=== PATIENT | male | born 1955 | race Caucasian/White ===

== ENCOUNTER 2018-04-29 10:25 | Inpatient (IN) | payer OTHER ==
[~2018-04-29] VITALS: Ht 180.3 cm; Wt 66.2 kg
[2018-04-29] MEDS ORDERED: LABETALOL HCL 200 MG in DEXTROSE 5%-WATER 160 ML IV PRN (10:59)
[2018-04-29] MEDS ORDERED: NALOXONE HCL 1 MG/ML 2 ML SYG IVP ONE (11:00)
[2018-04-29 11:27] LABS: ANION GAP 9 mmol/L (8-16); CALCIUM, TOTAL 8.6 mg/dL (8.8-10.5); CARBON DIOXIDE 26 mmol/L (22-29); CHLORIDE 102 mmol/L (98-107); CREATININE 5.16 mg/dL (0.60-1.30); GLOMERULAR FILTR. RATE CALC 11 mL/min (>60); GLUCOSE,RANDOM 99 mg/dL (70-110); POTASSIUM 3.7 mmol/L (3.5-5.1); SODIUM SERUM 137 mmol/L (136-145); UREA NITROGEN, BLOOD 64 mg/dL (7-18)
[2018-04-29 11:30] LABS: BASOPHILS % (AUTO) 0.5 % (0.0-2.0); EOSINOPHILS % (AUTO) 5.2 % (1.0-6.0); HEMOGLOBIN 11.8 g/dL (13.5-17.5); LYMPHOCYTES # (AUTO) 1.4 K/uL (1.0-4.8); LYMPHOCYTES % (AUTO) 18.9 % (22.0-44.0); MEAN CORPUSCULAR HGB CONC 34.6 G/dL (31.0-37.0); MEAN CORPUSCULAR VOLUME 92 fL (80-100); MONOCYTES # (AUTO) 0.6 K/uL (0.1-1.0); NEUTROPHILS # (AUTO) 5.1 K/uL (1.8-7.7); NEUTROPHILS % (AUTO) 67.4 % (40.0-70.0); RED BLOOD CELL COUNT(AUTO) 3.68 MIL/uL (4.50-5.90); RED CELL DISTRIBUTION WIDTH 13.3 % (11.5-14.5)
[2018-04-29] MEDS ORDERED: LABETALOL HCL 5 MG/ML 20 ML VIAL IVP ONE (11:30)
[2018-04-29 11:34] LABS: ALANINE AMINOTRANSFERASE 33 U/L (12-78); ALBUMIN 3.2 g/dL (3.4-5.0); ALKALINE PHOSPHATASE 64 U/L (46-116); ASPARTATE AMINOTRANSFERASE 27 U/L (15-37); BILIRUBIN,TOTAL 0.5 mg/dL (0.1-1.0); TOTAL PROTEIN, SERUM 6.5 g/dL (6.4-8.2); TROPONIN I 0.03 ng/mL (0.00-0.05)
[2018-04-29 11:37] LABS: LACTIC ACID 0.8 mmol/L (0.4-2.0)
[2018-04-29 11:42] LABS: B-TYPE NATRIURETIC PEPTIDE 1870 pg/mL (0-100)
[2018-04-29 11:49] LABS: PLATELET COUNT (AUTO) 61 K/uL (150-450)
[2018-04-29 11:50] LABS: ACETAMINOPHEN < 2 mcg/mL (10-30); AMMONIA < 10 umol/L (11-32)
[2018-04-29 11:53] LABS: ABG A-A DIFF O2 30.4 mmHg (10-20.0); ABG BASE EXCESS -3.9 mmol/L (-2.0-3.0); ABG CARBOXYHEMOGLOBIN 1.8 % (0.0-1.5); ABG HCO3 21.3 mmol/L (22.0-26.0); ABG METHEMOGLOBIN 0.2 % (0.0-1.5); ABG OXYGEN CONTENT 14.1 mL/dL (15.0-23.0); ABG OXYGEN SATURATION 94.2 % (95.0-98.0); ABG OXYHEMOGLOBIN 92.3 % (94.0-100.0); ABG PCO2 42 mmHg (35-45); ABG TOTAL HEMOGLOBIN 10.8 G/dL (12.0-18.0); SOURCE, BLOOD GAS ARTERIAL; TEMPERATURE, FAHRENHEIT, BG 97.4 FAHREN (96.0-98.6)
[2018-04-29 11:54] LABS: SITE, BLOOD GAS LFT RADIAL
[2018-04-29 11:58] LABS: APPEARANCE,URINE CLOUDY (CLEAR); BILIRUBIN,URINE NEGATIVE (NEGATIVE); GLUCOSE, URINE (UA) NEGATIVE (NEGATIVE); KETONES,URINE NEGATIVE (NEGATIVE); LEUKOCYTE ESTERASE ,URINE NEGATIVE (NEGATIVE); NITRATE,URINE NEGATIVE (NEGATIVE); OCCULT BLOOD,URINE LARGE (NEGATIVE); PROTEIN,URINE SEE CONFIRM (NEGATIVE); UROBILINOGEN,URINE 0.2 mg/dL (<=1.0)
[2018-04-29 12:00] LABS: AMPHET/METH SCREEN,URINE POSITIVE (NEGATIVE); BARBITURATE SCREEN, URINE NEGATIVE (NEGATIVE); BENZODIAZEPINES SCREEN,URINE NEGATIVE (NEGATIVE); CANNABINOID SCREEN,URINE POSITIVE (NEGATIVE); COCAINE SCREEN,URINE NEGATIVE (NEGATIVE); METHADONE SCREEN, URINE NEGATIVE (NEGATIVE); OPIATE SCREEN,URINE NEGATIVE (NEGATIVE)
[2018-04-29 12:01] LABS: PHENCYCLIDINE SCREEN,URINE NEGATIVE (NEGATIVE)
[2018-04-29 12:09] LABS: SALICYLATE 6.7 mg/dL (2.8-20.0)
[2018-04-29 12:38] LABS: BACTERIA,URINE Moderate /HPF (None Seen); RBC,URINE 51-100 /HPF (0-2); RENAL EPITHELIAL CELLS,URINE Few /LPF (None Seen); SULFOSALICYLIC ACID,URINE 3+ (Negative); WBC,URINE 0-2 /HPF (0-5)
[2018-04-29 12:39] LABS: FINE GRANULAR CASTS,URINE 0-2 /LPF (None Seen); HYALINE CASTS, URINE 0-2 /LPF (None Seen)
[2018-04-29] MEDS ORDERED: HydrALAZINE HCL 20 MG/ML VIAL IVP ONE ×2 (13:00→19:15)
[2018-04-29] MEDS ORDERED: BISACODYL 10 MG RECTAL RECTAL SUPPOSITORY PR PRN (14:45)
[2018-04-29] MEDS ORDERED: LORazepam 2 MG/ML VIAL IVP ONE (15:15)
[2018-04-29 17:23] VITALS: BP 194/112
[2018-04-29] MEDS ORDERED: PNEUMOCOCCAL VACCINE POLYVALENT 0.5 ML VIAL [PPSV23] IM ONE (19:00)
[2018-04-29 19:28] VITALS: BP 181/139
[2018-04-30] VITALS (7 sets, daily range): BP systolic 143–200; BP diastolic 92–125
[2018-04-30] MEDS ORDERED: ONDANSETRON HCL 4 MG/2 ML VIAL IM PRN (05:15)
[2018-04-30] MEDS: HydrALAZINE HCL 20 MG/ML VIAL IVP PRN ×3 (05:26→15:56)
[2018-04-30] MEDS: ONDANSETRON HCL 4 MG/2 ML VIAL IVP PRN ×3 (05:27→22:12)
[2018-04-30 06:22] LABS: BASOPHILS % (AUTO) 0.5 % (0.0-2.0); EOSINOPHILS % (AUTO) 0.9 % (1.0-6.0); HEMATOCRIT 38.1 % (41-53); HEMOGLOBIN 13.1 g/dL (13.5-17.5); LYMPHOCYTES # (AUTO) 0.8 K/uL (1.0-4.8); LYMPHOCYTES % (AUTO) 9.2 % (22.0-44.0); MEAN CORPUSCULAR HEMOGLOBIN 32.3 pg (26.0-34.0); MEAN CORPUSCULAR HGB CONC 34.4 G/dL (31.0-37.0); MEAN CORPUSCULAR VOLUME 94 fL (80-100); MONOCYTES # (AUTO) 0.6 K/uL (0.1-1.0); MONOCYTES % (AUTO) 6.3 % (2.0-9.0); NEUTROPHILS # (AUTO) 7.3 K/uL (1.8-7.7); NEUTROPHILS % (AUTO) 83.1 % (40.0-70.0); PLATELET COUNT (AUTO) 80 K/uL (150-450); RED BLOOD CELL COUNT(AUTO) 4.06 MIL/uL (4.50-5.90); RED CELL DISTRIBUTION WIDTH 13.5 % (11.5-14.5)
[2018-04-30 06:47] LABS: ALBUMIN 3.4 g/dL (3.4-5.0); BILIRUBIN,TOTAL 0.7 mg/dL (0.1-1.0); CALCIUM, TOTAL 8.9 mg/dL (8.8-10.5); CREATININE 3.84 mg/dL (0.60-1.30); MAGNESIUM 1.9 mg/dL (1.80-2.40); PHOSPHORUS 4.1 mg/dL (2.5-4.9); POTASSIUM 3.6 mmol/L (3.5-5.1)
[2018-04-30 06:50] LABS: % IRON SATURATION 22.8 % (30-44)
[2018-04-30] MEDS ORDERED: LORazepam 2 MG/ML VIAL IVP ONE ×2 (08:15→09:30)
[2018-04-30] MEDS ORDERED: LORazepam 2 MG/ML VIAL IVP PRN (08:45)
[2018-04-30] MEDS: ASPIRIN 81 MG CHEWABLE TABLET PO SCH (09:00)
[2018-04-30] MEDS: AmLODIPine BESYLATE 10 MG TABLET PO SCH (09:00)
[2018-04-30] MEDS: ATORVASTATIN CALCIUM 20 MG TABLET PO SCH (09:00)
[2018-04-30] MEDS ORDERED: HALOPERIDOL LACTATE 5 MG/ML VIAL IM PRN (10:30)
[2018-04-30] MEDS: DEXTROSE 5%-WATER 1,000 ML IV SCH (17:06)
[2018-04-30] MEDS: LORazepam 2 MG/ML VIAL IVP PRN ×2 (17:16→22:07)
[2018-05-01] VITALS (9 sets, daily range): BP systolic 162–199; BP diastolic 94–131
[2018-05-01] MEDS: ONDANSETRON HCL 4 MG/2 ML VIAL IVP PRN ×2 (02:37→22:58)
[2018-05-01] MEDS: LORazepam 2 MG/ML VIAL IVP PRN (04:11)
[2018-05-01] MEDS: HydrALAZINE HCL 20 MG/ML VIAL IVP PRN ×3 (05:36→22:09)
[2018-05-01 06:21] LABS: BASOPHILS % (AUTO) 0.5 % (0.0-2.0); EOSINOPHILS % (AUTO) 1.5 % (1.0-6.0); HEMATOCRIT 36.4 % (41-53); HEMOGLOBIN 12.5 g/dL (13.5-17.5); LYMPHOCYTES # (AUTO) 1.2 K/uL (1.0-4.8); LYMPHOCYTES % (AUTO) 13.3 % (22.0-44.0); MEAN CORPUSCULAR HEMOGLOBIN 32.1 pg (26.0-34.0); MEAN CORPUSCULAR HGB CONC 34.3 G/dL (31.0-37.0); MEAN CORPUSCULAR VOLUME 94 fL (80-100); MONOCYTES # (AUTO) 0.8 K/uL (0.1-1.0); MONOCYTES % (AUTO) 8.9 % (2.0-9.0); NEUTROPHILS # (AUTO) 6.8 K/uL (1.8-7.7); NEUTROPHILS % (AUTO) 75.8 % (40.0-70.0); PLATELET COUNT (AUTO) 100 K/uL (150-450); RED BLOOD CELL COUNT(AUTO) 3.89 MIL/uL (4.50-5.90); RED CELL DISTRIBUTION WIDTH 13.5 % (11.5-14.5)
[2018-05-01 06:40] LABS: CALCIUM, TOTAL 8.9 mg/dL (8.8-10.5); CREATININE 3.41 mg/dL (0.60-1.30); PHOSPHORUS 3.7 mg/dL (2.5-4.9); POTASSIUM 3.5 mmol/L (3.5-5.1)
[2018-05-01 07:29] LABS: GLUCOMETER DEV NAME(LOC) 5S 2R; GLUCOSE,POINT OF CARE 107 MG/DL (70-110)
[2018-05-01] MEDS: ASPIRIN 81 MG CHEWABLE TABLET PO SCH (09:00)
[2018-05-01] MEDS: ATORVASTATIN CALCIUM 20 MG TABLET PO SCH (09:00)
[2018-05-01] MEDS: AmLODIPine BESYLATE 10 MG TABLET PO SCH (09:00)
[2018-05-01] MEDS: CloNIDine 0.1 MG/24 HOUR PATCH TD SCH (09:21)
[2018-05-01] MEDS ORDERED: HEPARIN SODIUM,PORCINE 1,000 UNITS/ML VIAL IVP ONE ×2 (12:45→16:54)
[2018-05-01] MEDS ORDERED: 0.9% SODIUM CHLORIDE 5 ML NEB SOLUTION NEB ONE (17:59)
[2018-05-01] MEDS: ALBUTEROL SULFATE 2.5 MG/0.5 ML NEB SOLUTION NEB PRN (18:03)
[2018-05-01] MEDS: DEXTROSE 5%-WATER 1,000 ML IV SCH (18:13)
[2018-05-01] MEDS: CloNIDine HCL 0.1 MG TABLET PO PRN (20:36)
[2018-05-02] VITALS (8 sets, daily range): BP systolic 148–206; BP diastolic 90–119
[2018-05-02] MEDS ORDERED: CloNIDine HCL 0.1 MG TABLET PO ONE (00:30)
[2018-05-02] MEDS ORDERED: AmLODIPine BESYLATE 10 MG TABLET PO ONE (00:30)
[2018-05-02] MEDS: ACETAMINOPHEN 325 MG TABLET PO PRN ×3 (00:57→18:29)
[2018-05-02] MEDS: ONDANSETRON HCL 4 MG/2 ML VIAL IVP PRN (04:25)
[2018-05-02] MEDS: LORazepam 2 MG/ML VIAL IVP PRN (04:25)
[2018-05-02] MEDS: HydrALAZINE HCL 20 MG/ML VIAL IVP PRN (04:26)
[2018-05-02 06:33] LABS: EOSINOPHILS % (AUTO) 3.4 % (1.0-6.0); HEMATOCRIT 34.4 % (41-53); HEMOGLOBIN 12.1 g/dL (13.5-17.5); LYMPHOCYTES # (AUTO) 1.4 K/uL (1.0-4.8); LYMPHOCYTES % (AUTO) 15.9 % (22.0-44.0); MEAN CORPUSCULAR HEMOGLOBIN 32.4 pg (26.0-34.0); MEAN CORPUSCULAR VOLUME 93 fL (80-100); MONOCYTES # (AUTO) 0.6 K/uL (0.1-1.0); MONOCYTES % (AUTO) 7.3 % (2.0-9.0); NEUTROPHILS # (AUTO) 6.2 K/uL (1.8-7.7); NEUTROPHILS % (AUTO) 70.4 % (40.0-70.0); PLATELET COUNT (AUTO) 119 K/uL (150-450); RED BLOOD CELL COUNT(AUTO) 3.72 MIL/uL (4.50-5.90); RED CELL DISTRIBUTION WIDTH 13.5 % (11.5-14.5)
[2018-05-02 06:59] LABS: CALCIUM, TOTAL 8.8 mg/dL (8.8-10.5); CREATININE 4.58 mg/dL (0.60-1.30); MAGNESIUM 1.9 mg/dL (1.80-2.40); PHOSPHORUS 3.5 mg/dL (2.5-4.9); POTASSIUM 3.6 mmol/L (3.5-5.1)
[2018-05-02] MEDS: ATORVASTATIN CALCIUM 20 MG TABLET PO SCH (08:13)
[2018-05-02] MEDS: ASPIRIN 81 MG CHEWABLE TABLET PO SCH (08:13)
[2018-05-02] MEDS: AmLODIPine BESYLATE 10 MG TABLET PO SCH (08:13)
[2018-05-02] MEDS: HydrALAZINE HCL 25 MG TABLET PO SCH ×2 (10:36→20:02)
[2018-05-02] MEDS ORDERED: SODIUM CHLORIDE 0.9% 2,000 ML IV ONE (16:08)
[2018-05-02] MEDS: DEXTROSE 5%-WATER 1,000 ML IV SCH (17:41)
[2018-05-02] MEDS ORDERED: HEPARIN SODIUM,PORCINE 1,000 UNITS/ML VIAL IVP ONE (22:19)
[2018-05-03 00:11] VITALS: BP 148/104
[2018-05-03] MEDS: ACETAMINOPHEN 325 MG TABLET PO PRN ×3 (00:23→23:25)
[2018-05-03] MEDS: CloNIDine HCL 0.1 MG TABLET PO PRN (00:24)
[2018-05-03 04:01] VITALS: BP 152/104
[2018-05-03 08:04] VITALS: BP 150/97
[2018-05-03] MEDS: ASPIRIN 81 MG CHEWABLE TABLET PO SCH (08:21)
[2018-05-03] MEDS: AmLODIPine BESYLATE 10 MG TABLET PO SCH (08:21)
[2018-05-03] MEDS: ATORVASTATIN CALCIUM 20 MG TABLET PO SCH (08:21)
[2018-05-03] MEDS: HydrALAZINE HCL 25 MG TABLET PO SCH ×3 (08:21→20:14)
[2018-05-03 11:43] VITALS: BP 155/92
[2018-05-03 16:21] VITALS: BP 131/91
[2018-05-03 20:24] VITALS: BP 146/97
[2018-05-04 00:19] VITALS: BP 147/113
[2018-05-04] MEDS: LORazepam 2 MG/ML VIAL IVP PRN (01:28)
[2018-05-04] MEDS: CloNIDine HCL 0.1 MG TABLET PO PRN (02:17)
[2018-05-04] MEDS: ASPIRIN 81 MG CHEWABLE TABLET PO SCH (04:38)
[2018-05-04] MEDS ORDERED: IBUPROFEN 200 MG TABLET PO PRN (08:45)
[2018-05-04] MEDS: HydrALAZINE HCL 50 MG TABLET PO SCH ×3 (09:22→21:10)
[2018-05-04] MEDS: OMEPRAZOLE 20 MG CAPSULE PO SCH (09:23)
[2018-05-04] MEDS: AmLODIPine BESYLATE 10 MG TABLET PO SCH (09:23)
[2018-05-04] MEDS: ATORVASTATIN CALCIUM 20 MG TABLET PO SCH (09:23)
[2018-05-04] MEDS: HYDROCODONE/ACETAMINOPHEN 5-325 MG TABLET PO PRN ×3 (09:23→21:11)
[2018-05-04] MEDS ORDERED: ASPIRIN 81 MG CHEWABLE TABLET PO ONE (09:30)
[2018-05-04] MEDS: LABETALOL HCL 100 MG TABLET PO SCH ×2 (10:27→21:10)
[2018-05-04 12:00] VITALS: BP 142/98
[2018-05-04 16:43] VITALS: BP 126/89
[2018-05-04 19:23] VITALS: BP 143/84
[2018-05-05] VITALS (7 sets, daily range): BP systolic 128–152; BP diastolic 81–100
[2018-05-05] MEDS ORDERED: FOLI-74 PO (02:43)
[2018-05-05] MEDS ORDERED: CIME200T10 PO (02:43)
[2018-05-05] MEDS ORDERED: BUME2TAB18 PO (02:43)
[2018-05-05] MEDS ORDERED: BECL10.62 IH (02:43)
[2018-05-05] MEDS ORDERED: CARV25 PO (02:43)
[2018-05-05] MEDS ORDERED: ATOR20TA86 PO (02:43)
[2018-05-05] MEDS ORDERED: CLON-570 PO (02:43)
[2018-05-05] MEDS: HYDROCODONE/ACETAMINOPHEN 5-325 MG TABLET PO PRN (03:12)
[2018-05-05] MEDS: ATORVASTATIN CALCIUM 20 MG TABLET PO SCH (08:10)
[2018-05-05] MEDS: ASPIRIN 81 MG CHEWABLE TABLET PO SCH (08:10)
[2018-05-05] MEDS: ACETAMINOPHEN 325 MG TABLET PO PRN ×2 (08:10→15:16)
[2018-05-05] MEDS: OMEPRAZOLE 20 MG CAPSULE PO SCH (09:00)
[2018-05-05] MEDS: LABETALOL HCL 100 MG TABLET PO SCH ×2 (09:00→19:57)
[2018-05-05] MEDS: HydrALAZINE HCL 50 MG TABLET PO SCH ×3 (09:00→19:57)
[2018-05-05] MEDS: AmLODIPine BESYLATE 10 MG TABLET PO SCH (09:00)
[2018-05-06 04:44] VITALS: BP 193/110
[2018-05-06] MEDS: HydrALAZINE HCL 20 MG/ML VIAL IVP PRN (04:47)
[2018-05-06 07:11] VITALS: BP 153/98
[2018-05-06] MEDS: ATORVASTATIN CALCIUM 20 MG TABLET PO SCH (07:52)
[2018-05-06] MEDS: ASPIRIN 81 MG CHEWABLE TABLET PO SCH (07:52)
[2018-05-06] MEDS: ACETAMINOPHEN 325 MG TABLET PO PRN ×3 (07:52→20:49)
[2018-05-06] MEDS ORDERED: 0.9% SODIUM CHLORIDE 5 ML NEB SOLUTION NEB ONE (08:00)
[2018-05-06] MEDS: ALBUTEROL SULFATE 2.5 MG/0.5 ML NEB SOLUTION NEB PRN (08:18)
[2018-05-06] MEDS: VITAMIN B COMP/VIT C/FOLIC ACID CAPSULE PO SCH (09:00)
[2018-05-06] MEDS: AmLODIPine BESYLATE 10 MG TABLET PO SCH (09:00)
[2018-05-06] MEDS: OMEPRAZOLE 20 MG CAPSULE PO SCH (09:00)
[2018-05-06] MEDS: LABETALOL HCL 100 MG TABLET PO SCH ×2 (09:00→20:46)
[2018-05-06] MEDS: HydrALAZINE HCL 50 MG TABLET PO SCH ×3 (09:00→20:46)
[2018-05-06 10:58] VITALS: BP 148/82
[2018-05-06] MEDS ORDERED: SODIUM CHLORIDE 0.9% 2,000 ML IV ONE (13:19)
[2018-05-06] MEDS ORDERED: MANNITOL 25%-12.5 GM/50 ML VIAL IVP PRN (13:45)
[2018-05-06] MEDS ORDERED: HEPARIN SODIUM,PORCINE 1,000 UNITS/ML VIAL IVP ONE ×3 (13:45→16:38)
[2018-05-06 16:01] VITALS: BP 133/89
[2018-05-06 20:32] VITALS: BP 173/101
[2018-05-06] MEDS: CloNIDine HCL 0.1 MG TABLET PO PRN (20:48)
[2018-05-06 23:26] VITALS: BP 128/74
[2018-05-07 05:38] VITALS: BP 139/81
[2018-05-07 07:15] VITALS: BP 155/92
[2018-05-07] MEDS: ACETAMINOPHEN 325 MG TABLET PO PRN ×2 (07:30→17:46)
[2018-05-07] MEDS: ALBUTEROL SULFATE 2.5 MG/0.5 ML NEB SOLUTION NEB PRN (08:16)
[2018-05-07] MEDS: OMEPRAZOLE 20 MG CAPSULE PO SCH (09:00)
[2018-05-07] MEDS: AmLODIPine BESYLATE 10 MG TABLET PO SCH (09:35)
[2018-05-07] MEDS: LABETALOL HCL 200 MG TABLET PO SCH ×2 (09:35→20:18)
[2018-05-07] MEDS: ATORVASTATIN CALCIUM 20 MG TABLET PO SCH (09:35)
[2018-05-07] MEDS: ASPIRIN 81 MG CHEWABLE TABLET PO SCH (09:36)
[2018-05-07] MEDS: HydrALAZINE HCL 50 MG TABLET PO SCH ×3 (09:37→20:16)
[2018-05-07] MEDS: VITAMIN B COMP/VIT C/FOLIC ACID CAPSULE PO SCH (09:37)
[2018-05-07 11:09] VITALS: BP 123/77
[2018-05-07 15:18] VITALS: BP 122/80
[2018-05-07 20:03] VITALS: BP 136/92
[2018-05-07 23:47] VITALS: BP 127/59
[2018-05-08 04:00] VITALS: BP 135/91
[2018-05-08] MEDS: ACETAMINOPHEN 325 MG TABLET PO PRN ×3 (04:39→16:18)
[2018-05-08 07:35] VITALS: BP 161/112
[2018-05-08] MEDS: VITAMIN B COMP/VIT C/FOLIC ACID CAPSULE PO SCH (11:49)
[2018-05-08] MEDS: ASPIRIN 81 MG CHEWABLE TABLET PO SCH (11:50)
[2018-05-08] MEDS: AmLODIPine BESYLATE 10 MG TABLET PO SCH (11:50)
[2018-05-08] MEDS: ATORVASTATIN CALCIUM 20 MG TABLET PO SCH (11:50)
[2018-05-08] MEDS: HydrALAZINE HCL 50 MG TABLET PO SCH ×3 (11:50→23:31)
[2018-05-08] MEDS: LABETALOL HCL 200 MG TABLET PO SCH ×2 (11:51→23:31)
[2018-05-08] MEDS: OMEPRAZOLE 20 MG CAPSULE PO SCH (11:51)
[2018-05-08 12:00] VITALS: BP 144/93
[2018-05-08] MEDS: CloNIDine 0.1 MG/24 HOUR PATCH TD SCH (12:06)
[2018-05-08] MEDS ORDERED: HEPARIN SODIUM,PORCINE 1,000 UNITS/ML VIAL IVP ONE (15:14)
[2018-05-08 16:23] VITALS: BP 120/77
[2018-05-08 19:24] VITALS: BP 109/70
[2018-05-08 23:29] VITALS: BP 147/94
[2018-05-09 04:35] VITALS: BP 127/81
[2018-05-09 07:58] VITALS: BP 144/90
[2018-05-09] MEDS: HydrALAZINE HCL 50 MG TABLET PO SCH (08:37)
[2018-05-09] MEDS: VITAMIN B COMP/VIT C/FOLIC ACID CAPSULE PO SCH (08:37)
[2018-05-09] MEDS: AmLODIPine BESYLATE 10 MG TABLET PO SCH (08:37)
[2018-05-09] MEDS: LABETALOL HCL 200 MG TABLET PO SCH (08:37)
[2018-05-09] MEDS: ATORVASTATIN CALCIUM 20 MG TABLET PO SCH (08:37)
[2018-05-09] MEDS: ASPIRIN 81 MG CHEWABLE TABLET PO SCH (08:37)
[2018-05-09] MEDS: OMEPRAZOLE 20 MG CAPSULE PO SCH ×2 (08:37→09:00)
[2018-05-09 12:08] VITALS: BP 130/85
[2018-05-09] MEDS ORDERED: ASPI81TA87 PO (14:49)
[2018-05-09] MEDS ORDERED: AMLO-512 PO (14:50)
[2018-05-09] MEDS ORDERED: CLON-570 TD (14:52)
[2018-05-09] MEDS ORDERED: HYDR-2924 PO (14:52)
[2018-05-09] MEDS ORDERED: FOLI1CAP2 PO (14:53)
[2018-05-09] MEDS ORDERED: LABE200T6 PO (14:53)
[2018-05-09 15:35] VITALS: BP 136/66
== END 2018-05-09 15:15 | disposition home or self-care (01) | DRG 199 ==
LOC: EMS 10:27 → 5S 16:15 → 4E 05-06 18:55 → 6N 05-09 14:06
PROVIDERS: ADMIT Internal Medicine; ATTEND Internal Medicine
PROC: 3E02340 Introduction of Influenza Vaccine into Muscle, Percutaneous Approach (ICD-10-PCS; principal; 2018-04-29)
PROC: 5A1D70Z Performance of Urinary Filtration, Intermittent, Less than 6 Hours Per Day (ICD-10-PCS; 2018-04-29)
PROC: 5A1D70Z Performance of Urinary Filtration, Intermittent, Less than 6 Hours Per Day (ICD-10-PCS; 2018-04-30)
PROC: 5A1D70Z Performance of Urinary Filtration, Intermittent, Less than 6 Hours Per Day (ICD-10-PCS; 2018-05-02)
PROC: 5A1D70Z Performance of Urinary Filtration, Intermittent, Less than 6 Hours Per Day (ICD-10-PCS; 2018-05-05)
PROC: 5A1D70Z Performance of Urinary Filtration, Intermittent, Less than 6 Hours Per Day (ICD-10-PCS; 2018-05-06)
PROC: 5A1D70Z Performance of Urinary Filtration, Intermittent, Less than 6 Hours Per Day (ICD-10-PCS; 2018-05-08)
DX: I16.0 Hypertensive urgency (principal); E43 Unspecified severe protein-calorie malnutrition; G92 Toxic encephalopathy; N17.9 Acute kidney failure, unspecified; D69.6 Thrombocytopenia, unspecified; N18.6 End stage renal disease; I12.0 Hypertensive chronic kidney disease with stage 5 chronic kidney disease or end stage renal disease; F15.10 Other stimulant abuse, uncomplicated; R31.9 Hematuria, unspecified; Z91.19 Patient's noncompliance with other medical treatment and regimen; R80.9 Proteinuria, unspecified; D64.9 Anemia, unspecified; Z86.73 Personal history of transient ischemic attack (TIA), and cerebral infarction without residual deficits; Z91.15 Patient's noncompliance with renal dialysis; Z23 Encounter for immunization
CPT/HCPCS: 70250; 70551; 76770; 82805; 83540; 83550; 83605; 83735; 84100; 86704; 86706; 87081; 87086; 87340; 90686; 90732; 90935; 92610; 93005; 93306; 94640; 96365; 96375; 97116; 97162; 99291; G0378; G0480; G0481; J0360; J1644; J2060; J2310; J2405; J3490; J7030; J7060